=== PATIENT | male | born 2005 ===

== ENCOUNTER 2023-02-10 20:49 | Emergency (ER) | payer OTHER, SELFPAY ==
[2023-02-10 21:13] VITALS: BP 131/76; PULSE 98; RESP 20; TEMP 37.8; O2SAT 99; BMI 22.9
--- NOTE | 2023-02-11 00:01 | ED.GENADULT ---
HPI - General Adult General Chief complaint: Fever Stated complaint: sore throat headache,fever Time Seen by Provider: 02/10/23 23:53 Source: patient Mode of arrival: ambulatory Limitations: no limitations History of Present Illness HPI narrative: Patient comes to the emergency room complaining of sore throat all day today. Patient complaining of fever and chills. Patient states it hurts when he swallows. Patient denies coughing, no nasal congestion. Denies any difficulty breathing or wheezing Related Data Previous Rx's Medication Instructions Recorded amoxicillin 500 mg-potassium 1 tab PO BID #19 tabs 02/11/23 clavulanate 125 mg tablet (Augmentin) ibuprofen 600 mg tablet 600 mg PO TID PRN fever or pain 02/11/23 #20 tabs Allergies Allergy/AdvReac Type Severity Reaction Status Date / Time No Known Allergies Allergy Verified 02/10/23 21:12 Review of Systems Review of Systems: Constitutional : No Weight loss, No Fever, No Chills, No Night Sweats, No Fatigue, No Malaise ENT/Mouth : No Hearing loss, No Ear Pain, No Nasal Congestion, No Sinus Pain, No Hoarseness, complaining of sore throat, No Rhinorrhea, No Swallowing Difficulty Eyes: No Eye Pain, No Swelling, No Redness, No Foreign Body, No Discharge, No Vision Changes Cardiovascular : No Chest Pain, No SOB, No Dyspnea on Exertion, No Orthopnea, No Edema, No Palpitations Respiratory : No Cough, No Sputum, No Wheezing, No Smoke Exposure, No Dyspnea Gastrointestinal : No Nausea, No Vomiting, No Diarrhea, No Constipation, No abdominal Pain, No Hematochezia, No Melena Genitourinary : no irregular bleeding, No Dysuria, No Urinary Frequency, No Hematuria, No Urinary Incontinence, No Urgency, No Flank Pain, No Urinary Flow Changes, No Hesitancy Musculoskeletal : No joint pain, No Myalgias, No Joint Swelling Skin : No Skin Lesions, No rash Neuro : No Weakness, No Numbness, No Paresthesias, No Loss of Consciousness, No Dizziness, No Headache Psych : No Anxiety/Panic, No Depression, No SI/HI/AH/VH, No Social Issues, Heme/Lymph: No Bruising, No Bleeding,No Lymphadenopathy Endocrine : No Polyuria, No Polydipsia, No Temperature Intolerance PMFSH Social History Social History Advance Directives: No Advance Directives Information Provided: Yes Physical Exam ED Vital Signs: Vital Signs - 24 hr 02/10/23 21:13 Temperature 100.0 F Pulse Rate 98 Respiratory Rate 20 Blood Pressure 131/76 Pulse Oximetry 99 Oxygen Delivery Method Room Air BMI result Body Mass Index 22.9 Const Other: Appearance: Alert. Oriented X3. No acute distress. Eyes: Pupils equal, round and reactive to light. ENT: Erythematous oropharynx with white exudates in bilateral tonsils, no obvious abscess visualized, airway patent Neck: Normal inspection. Neck supple. No lymph nodes noted. No crepitus CVS: Normal heart rate and rhythm. Pulses normal. Normal S1 and S2 Respiratory: No respiratory distress. Breath sounds normal. No Wheezing. No rales Abdomen: Soft and nontender. No rigidity. No distention. Skin: Skin warm and dry. Normal skin color. Normal skin turgor. Extremities: No lower extremity edema. No Lacerations. No Rash Neuro: Oriented X 3. No motor deficit. No sensory deficit. Moving all extremities. No slurred speech. CN 2 through 12 grossly intact Psych: calm, cooperative, normal affect Course Course Course Narrative: Patient receiving p.o. ibuprofen and Decadron Medical Decision Making Medical Decision Making [facility] Narrative: -my interpretation of labs: Negative for influenza, COVID, RSV -patient has white exudates in the oropharynx, strep and mono test serology pending -interpretation of labs, patient tested negative for mono, the test for strep was inconclusive. However, patient has fever and has exudates, I will treat him with antibiotics, Augmentin. Differential Diagnosis Differential Diagnoses: The differential diagnosis associated with the presentation includes (Viral pharyngitis, strep pharyngitis, COVID, RSV, influenza) Lab Data [facility] Lab Attestation statement: I reviewed the patient's lab results. 02/10/23 22:05 02/10/23 22:05 Labs: Lab Results 02/10/23 02/10/23 02/10/23 Range/Units 22:05 22:05 22:05 WBC 7.0 (4.8-10.8) X10*3/uL RBC 4.74 (4.60-5.80) X10*6/uL Hgb 14.0 (14.0-18.0) g/dl Hct 41.8 L (42.0-52.0) % MCV 88.2 (80.0-98.0) fL MCH 29.5 (27.0-33.0) pg MCHC 33.5 (31.0-36.0) g/dl RDW 11.6 (11.0-16.0) % Plt Count 129 L (160-400) X10*3/uL MPV 10.5 (9.4-12.4) fL Immature Gran % (Auto) 0.3 (0.0-0.4) % Neut % (Auto) 73.1 H (45-73) % Lymph % (Auto) 13.9 L (20-40) % Harmon % (Auto) 12.6 H (2-11) % Eos % (Auto) 0.0 (0-4) % Baso % (Auto) 0.1 (0-2) % Lymph # (Auto) 1.0 L (1.2-4.9) X10*3/uL Harmon # (Auto) 0.9 (0.1-1.2) X10*3/uL Eos # (Auto) 0.0 (0.0-0.4) X10*3/uL Baso # (Auto) 0.0 (0.0-0.2) X10*3/uL Abs Immat Gran (auto) 0.02 (0.00-0.03) X10*3/uL Absolute Neuts (auto) 5.1 (2.0-8.3) x10*3/uL Absolute Nucleated RBC 0.000 (0.0-0.012) X10*3/uL Nucleated RBC % (auto) 0.0 (0.0-0.2) /100WBC Sodium 138 (135-145) mmol/L Potassium 3.9 (3.3-5.1) mmol/L Chloride 103 (96-108) mmol/L Carbon Dioxide 24 (22-29) mmol/L Anion Gap 15 (12-20) BUN 9 (9-16) mg/dL Creatinine 0.79 (0.5-1.4) mg/dL Estim Creat Clear Calc 148.3 Estimated GFR > 60 Random Glucose 88 (60-115) mg/dL Calcium 9.4 (8.4-10.2) mg/dL Total Bilirubin 1.0 (0.0-1.0) mg/dL AST 14 (5-37) U/L ALT 12 (0-40) U/L Alkaline Phosphatase 46 (39-117) U/L Total Protein 7.3 (6.5-8.0) g/dL Albumin 4.2 (3.5-5.0) g/dL Monoscreen (Negative) Influenza Type A (PCR) NEGATIVE (Negative) Influenza Type B (PCR) NEGATIVE (Negative) RSV RNA Qual (PCR) NEGATIVE (Negative) SARS-CoV-2 RNA (RT-PCR) NEGATIVE (Negative) S. pyogenes GrpA MARIANNE (Negative) 02/11/23 02/11/23 Range/Units 00:18 00:18 WBC (4.8-10.8) X10*3/uL RBC (4.60-5.80) X10*6/uL Hgb (14.0-18.0) g/dl Hct (42.0-52.0) % MCV (80.0-98.0) fL MCH (27.0-33.0) pg MCHC (31.0-36.0) g/dl RDW (11.0-16.0) % Plt Count (160-400) X10*3/uL MPV (9.4-12.4) fL Immature Gran % (Auto) (0.0-0.4) % Neut % (Auto) (45-73) % Lymph % (Auto) (20-40) % Harmon % (Auto) (2-11) % Eos % (Auto) (0-4) % Baso % (Auto) (0-2) % Lymph # (Auto) (1.2-4.9) X10*3/uL Harmon # (Auto) (0.1-1.2) X10*3/uL Eos # (Auto) (0.0-0.4) X10*3/uL Baso # (Auto) (0.0-0.2) X10*3/uL Abs Immat Gran (auto) (0.00-0.03) X10*3/uL Absolute Neuts (auto) (2.0-8.3) x10*3/uL Absolute Nucleated RBC (0.0-0.012) X10*3/uL Nucleated RBC % (auto) (0.0-0.2) /100WBC Sodium (135-145) mmol/L Potassium (3.3-5.1) mmol/L Chloride (96-108) mmol/L Carbon Dioxide (22-29) mmol/L Anion Gap (12-20) BUN (9-16) mg/dL Creatinine (0.5-1.4) mg/dL Estim Creat Clear Calc Estimated GFR Random Glucose (60-115) mg/dL Calcium (8.4-10.2) mg/dL Total Bilirubin (0.0-1.0) mg/dL AST (5-37) U/L ALT (0-40) U/L Alkaline Phosphatase (39-117) U/L Total Protein (6.5-8.0) g/dL Albumin (3.5-5.0) g/dL Monoscreen Negative (Negative) Influenza Type A (PCR) (Negative) Influenza Type B (PCR) (Negative) RSV RNA Qual (PCR) (Negative) SARS-CoV-2 RNA (RT-PCR) (Negative) S. pyogenes GrpA MARIANNE Invalid (Negative) Discharge Plan Discharge Clinical Impression: Acute streptococcal pharyngitis Patient Disposition: Home, Self-Care Instructions: Strep Throat (ED) Additional Instructions: Please follow-up with your primary care physician tomorrow. If you have any worsening or new symptoms, please return to the emergency room or call 911 Prescriptions: New amoxicillin-pot clavulanate [Augmentin] 500-125 mg tablet 1 tab PO BID Qty: 19 0RF ibuprofen 600 mg tablet 600 mg PO TID PRN (Reason: fever or pain) Qty: 20 0RF
--- NOTE | 2023-02-11 02:06 | PC.NURSE ---
Discharge instructions given and explained to pt No apparent distress No respiratory distress Able to speak in full sentences Ambulates safely/independently All of pt's questions answered AOx4
[2023-02-11 02:19] VITALS: BP 122/70; PULSE 84; RESP 15; TEMP 37.7; O2SAT 98
--- NOTE | 2023-02-11 02:19 | PC.NURSE ---
Two attempts made for strep swab, both results invalid provider made aware
== END 2023-02-11 02:20 | disposition home or self-care (01) ==
PROVIDERS: Emergency Provider Emergency Medicine
DX: J02.0 Streptococcal pharyngitis (principal); Z20.822 Contact with and (suspected) exposure to COVID-19
CPT/HCPCS: 0241U; 36415; 80053; 85025; 86308; 87651; 99283; 99284; J8540

== ENCOUNTER 2025-08-03 12:32 | Outpatient (REF) | payer MEDICAID, SELFPAY ==
--- OUTSIDE RECORDS SUMMARY | 2025-08-03 11:45 | XMS_ITS | Encounter Summary ---
Author Organization [employer] Address [address] [facility] [place] [address] Care Team Providers Care Payroll Tax Analyst Name Role Phone Mandi Mendoza CNP Primary Care Provider [phone] Encounter Details Date Type Department Care Team ([facility] st Contact Info) Description 08/03/2025 11:45 AM EST Office Visit [facility] MED & PEDS [address] [place], [place] [id number] Mandi Mendoza CNP [address] [place] [address] Encounter for physical examination (Primary Dx); Anxiety; Chronic midline low back pain without sciatica; Encounter for immunization Social History Tobacco Use Types Packs/Day Years Used Date Smoking Tobacco: Never Smokeless Tobacco: Never Tobacco Cessation:Counseling Given: Not Answered Depression Answer Date Recorded Patient Health Questionnaire-9 Score 4 08/03/2025 Patient Health Questionnaire-9 Score 4 08/03/2025 Last PHQ-9: Questionnaire Data Not on file 1 10/04/2024 Depression Answer Date Recorded Patient Health Questionnaire-2 Score 1 08/03/2025 Sex and Gender Information Value Date Recorded Sex Assigned at Male 06/10/2022 10:36 AM EDT Legal Sex Male 10:36 AM EDT Gender Identity Male 01/23/2023 3:07 PM EDT Sexual Orientation Choose not to disclose 2022 3:07 PM EDT Sexual Orientation Straight 01/23/2023 3: 07 PM EDT documented as of this encounter Last Filed Vital Signs Vital Sign Reading Time Taken Comments Blood Pressure 124/82 08/03/2025 11:46 AM EST Pulse 78 08/03/2025 11:46 AM EST Temperature 36.3 C (97.3 F) 08/03/2025 11:46 AM EST Respiratory Rate 14 08/03/2025 11:46 AM EST Oxygen Saturation 98% 08/03/2025 11:46 AM EST Inhaled Oxygen Concentration - - Weight 78.9 kg (174 lb) 08/03/2025 11:46 AM EST Height 175.3 cm (5' 9 ) 08/03/2025 11:46 AM EST Body Mass Index 25.7 08/03/2025 11:46 AM EST documented in this encounter Functional Status * Over the past 2 weeks, how often have you been bothered by any of the following problems? Question Answer Date of Assessment Author Patient Health Questionnaire -2 Score 1 08/03/2025 12:27 PM EST Sa jaren Altamirano MA * Little interest or pleasure in doing things Answer Date of Assessment Author Several days 08/03/2025 12:27 PM Sandra Negron MA * Feeling down, depressed, or hopeless Answer Date of Assessment Author Not at all 08/03/2025 12:27 PM Sandra Negron MA * Trouble falling or staying asleep, or sleeping too much Answer Date of Assessment Author Several days 08/03/2025 12:27 PM Sandra Negron MA * Feeling tired or having little energy Answer Date of Assessment Author Not at all 08/03/2025 12:27 PM Sandra Negron MA * Poor appetite or overeating Answer Date of Assessment Author Not at all 08/03/2025 12:27 PM Sandra Negron MA * Feeling bad about yourself - or that you are a failure or have let yourself or your family down Answer Date of Assessment Author Not at all 08/03/2025 12:27 PM Sandra Negron MA * Trouble concentrating on things, such as reading the newspaper or watching television Answer Date of Assessment Author Several days 08/03/2025 12:27 PM Sandra Negron MA * Moving or speaking so slowly that other people could have noticed? Or the opposite - being so fidgety or restless that you have been moving around a lot more than usual. Answer Date of Assessment Author Several days 08/03/2025 12:27 PM Sandra Negron MA * Thoughts that you would be better off or hurting yourself in some way Answer Date of Assessment Author Not at all 08/03/2025 12:27 PM Sandra Negron MA * Patient Health Questionnaire-9 Score Answer Date of Assessment Author 4 08/03/2025 12:27 PM Sandra Negron MA * How difficult have these problems made it for you to do your work, take care of things at home, or get along with other people? Answer Date of Assessment Author Somewhat difficult 08/03/2025 12:27 PM Sandra Juarez MA documented as of this encounter Plan of Treatment Upcoming Encounters Date Type Department Care Team (Late st Contact Info) Description 09/16/2025 10:30 AM EST Office Visit [facility] MED & PEDS [address] [place] [address] IowaMandi, BLOOD BANK BOOKING CLERK [address] [place] [address] Scheduled Orders Name Type Priority Associated Diagnoses Orde r Schedule HIV-1/2 Antigen and Antibodies, Fourth Generation, with Reflexes Lab Routine Encounter for physical examination Expected: 08/03/2025 (Approximate), Expires: 08/03/2026 Hepatitis C Antibody with Reflex to HCV, RNA, Quantitative, Real-Time PCR Lab Routine Encounter for physical examination Expected: 08/03/2025, Expires: 08/03/2026 RPR (Monitor) with Reflex to Titer Lab Routine Encounter for physical examination Expected: 08/03/2025, Expires: 08/03/2026 Chlamydia/N. Gonorrhoeae, PCR, Urine Lab Routine Encounter for physical examination Ordered: 08/03/2025 CBC auto differential Lab Routine Encounter for physical examination Expected: 08/03/2025 (Approximate), Expires: 08/03/2026 Basic Metabolic Panel Lab Routine Encounter for physical examination Expected: 08/03/2025 (Approximate), Expires: 08/03/2026 XR Lumbar Spine 2-3 Views Imaging Routine Chronic midline low back pain without sciatica Expected: 08/03/2025, Expires: 08/03/2026 Chlamydia/N. Gonorrhoeae, PCR, Urine Lab Routine Encounter for physical examination Ordered: 08/03/2025 documented as of this encounter Visit Diagnoses Diagnosis Encounter for physical examination- Primary Anxiety Anxiety state, unspecified Chronic midline low back pain without sciatica Encounter for immunization documented in this encounter Additional Health Concerns Assessment Noted Time PHQ-9 Depression Total Score: 4 08/03/20 25 12:27 PM EST documented as of this encounter Care Teams Payroll Tax Analyst Relationship Specialty Start Date End Date Mandi Mendoza CNP [address] [place] [id number] PCP - General Family Medicine 08/03/25 documented as of this encounter
--- OUTSIDE RECORDS SUMMARY | 2025-08-03 12:34 | XMS_ITS | Clinical Summary ---
Author Organization [employer] Address [address] [facility] [address] [place] [address] Care Team Providers Care Resource Manager Name Role Phone Mandi Mendoza CNP Primary Care Provider [phone] Allergies Active Allergy Reactions Criticality Noted Date Comments Cat Dander 08/03/2025 Pollen Extract 08/03/2025 Medications escitalopram (Lexapro) 10 MG tabletIndication s:Anxiety Take 1 tablet (10 mg) by mouth Once per day. 30 tablet 2 08/03/2025 Active Active Problems No known active problems Encounters Date Type Department Care Team Description 08/03/2025 11:45 AM EST Office Visit [facility] MED & PEDS [address] [place] [address] Mandi Mendoza CNP Encounter for physical examination (Primary Dx); Anxiety; Chronic midline low back pain without sciatica; Encounter for immunization 08/02/2025 Travel from Last 3 Months Immunizations Immunization Administration Dates Next Due HepB-CpG 08/03/2025 Influenza, Injectable, MDCK, preservative free 1 09/15/2024 Pfizer Covid-19 Vaccine 12+ Bivalent 09/16/2022 Tdap 05/10/2020 Social History Tobacco Use Types Packs/Day Years [...] Orientation Straight 01/23/2023 3: 07 PM EDT Last Filed Vital Signs Vital Sign Reading [...] Mass Index 25.7 08/03/2025 11:46 AM EST Plan of Treatment Upcoming Encounters Date Type Department Care Team (Late st Contact Info) Description 09/16/2025 10:30 AM EST Office Visit [facility] MED & PEDS [address] [place] [address] Mandi Mendoza, [facility] [address] [place] [address] Health Maintenance Due Date Last Done Comments Chlamydia and Gonorrhea Screening 2003 Depression Screening 2003 HIV Screening 2003 SDOH Screening 2003 Disability Screening 2003 Alcohol/Substance Use Screening 2015 Family Planning (PISQ) 2018 HPV Vaccines (1 - Male 3-dos e series) 2018 Meningococcal B Vaccine (1 o f 2 - Standard) 2019 Hepatitis C Screening 2021 COVID-19 Vaccine (2 - 2024-2 6 season) 2025 09/16/2022 Hepatitis B Vaccines (2 of 2 - CpG 2-dose series) 08/31/2025 08/03/2025 Tobacco Screening 08/03/2026 08/03/2025 DTaP/Tdap/Td Vaccines (2 - T d or Tdap) 05/10/2030 05/10/2020 Zoster Vaccines (1 of 2) 2053 RSV Patients and Pa tients Aged 60 years or older (1 - 1-dose 75+ series) 2078 Influenza Vaccine Completed 07/15/2025 HIB Vaccines Aged Out No longer eligi ble based on patient's age to complete this topic Hepatitis A Vaccines Aged Out No long er eligible based on patient's age to complete this topic IPV Vaccines Aged Out No longer eligi ble based on patient's age to complete this topic Meningococcal Vaccine Aged Out No orlin cezar eligible based on patient's age to complete this topic Pneumococcal Vaccine: Pediat rics (0 to 5 Years) and At-Risk Patients (6 to 49) Years Aged Out No longer eligi ble based on patient's age to complete this topic RSV under 20 months Aged Out No longe r eligible based on patient's age to complete this topic Rotavirus Vaccines Aged Out No longer eligible based on patient's age to complete this topic Insurance [employer] Care Teams Resource Manager Relationship Specialty Start Date End Date Mandi Mendoza CNP [address] [place] [id number] PCP - General Family Medicine 08/03/25
--- OUTSIDE RECORDS SUMMARY | 2025-08-03 12:34 | XMS_ITS | Encounter Summary ---
Author Organization [employer] Address [address] [place] [address] [address] [place] [address] Care Team Providers Care Instructional Design Specialist Name Role Phone Unavailable Primary Care Provider Unavailabl e Encounter Details Date Type Department Care Team (Latest Contact Info) Description 08/02/2025 Travel Social History Tobacco Use Types Packs/Day Years Used Date Smoking Tobacco: Never Smokeless Tobacco: Never Depression Answer Date Recorded Patient Health Questionnaire-9 [...] PM EDT documented as of this encounter Plan of Treatment Upcoming Encounters Date Type Department Care Team (Late st Contact Info) Description 09/16/2025 10:30 AM EST Office Visit [facility] MED & PEDS [address] [place] [address] Mandi Mendoza, HODAN [address] [place] [address] documented as of this encounter Visit Diagnoses Not on filedocumented in this encounter
[2025-08-03 14:58] LABS: MANUAL DIFF FLAG NO
[2025-08-03 15:16] LABS: Hematocrit 45.6 % (42.0-52.0); Hemoglobin 15.2 g/dl (14.0-18.0); Imm Gran Abs Auto 0.02 X10*3/uL (0.00-0.03); Imm Gran Pct Auto 0.3 % (0.0-0.4); Lymphocytes Absolute Auto 1.8 X10*3/uL (1.2-4.9); Mean Corpuscular HGB Conc 33.3 g/dl (31.0-36.0); Mean Corpuscular Hemoglobin 30.0 pg (27.0-33.0); Mean Corpuscular Volume 89.9 fL (80.0-98.0); NRBC Abs Auto 0.000 X10*3/uL (0.0-0.012); NRBC Pct Auto 0.0 /100WBC (0.0-0.2); Platelet Count 174 X10*3/uL (160-400); Red Blood Count 5.07 X10*6/uL (4.60-5.80); White Blood Count 6.1 X10*3/uL (4.8-10.8)
[2025-08-03 15:38] LABS: Anion Gap 11 (12-20); Blood Urea Nitrogen 15 mg/dL (9-16); Calcium 9.6 mg/dL (8.4-10.2); Carbon Dioxide 26 mmol/L (22-29); Chloride 108 mmol/L (96-108); Estimated Glomerular Filt Rate > 60; Potassium 4.2 mmol/L (3.3-5.1); Sodium 141 mmol/L (135-145)
[2025-08-03 16:55] LABS: CT PCR Urine NOT DETECTED (Not Detect.); NG PCR Urine NOT DETECTED (Not Detect.)
[2025-08-05 03:41] LABS: HIV Num 1 0.07 S/CO (0.00-0.99); ~HepC Num1 0.14 S/CO (0.00-0.79); ~Hepatitis C Antibody Nonreactive (Nonreactive)
== END 2025-08-03 12:33 | disposition home or self-care (01) ==
LOC: HO.CHCLDS 12:32
DX: Z00.00 Encounter for general adult medical examination without abnormal findings (principal); Z11.4 Encounter for screening for human immunodeficiency virus [HIV]; Z11.59 Encounter for screening for other viral diseases; Z20.2 Contact with and (suspected) exposure to infections with a predominantly sexual mode of transmission
CPT/HCPCS: 36415; 80048; 85025; 86592; 86803; 87389; 87491; 87591